=== PATIENT | female | born 1970 | race Caucasian/White ===

== ENCOUNTER → 2016-12-21 | Outpatient (CLI) | payer BC ==
[~2016-12-21] MED LIST: NORCO 325 MG-51 TAB PO; WELLBUTRIN SR150 M1 PO; WELLBUTRIN XL150 MG PO
== END ==
LOC: COL.RAD 14:15
DX: E04.2 Nontoxic multinodular goiter (principal); R13.10 Dysphagia, unspecified

== ENCOUNTER → 2019-08-28 | Outpatient (CLI) | payer BC | LOC: COL.RAD 08:15 | DX: E04.2 Nontoxic multinodular goiter (principal) ==

== ENCOUNTER → 2020-08-26 | Outpatient (CLI) | payer BC | LOC: MC.RAD 08:00 | DX: Z12.31 Encounter for screening mammogram for malignant neoplasm of breast (principal); N63.10 Unspecified lump in the right breast, unspecified quadrant; Z98.82 Breast implant status ==

== ENCOUNTER → 2020-09-02 | Outpatient (CLI) | payer BC | LOC: MC.RAD 08:00 | DX: N60.01 Solitary cyst of right breast (principal) ==